=== PATIENT | male | born 2000 | race Hispanic/Latino ===

== ENCOUNTER 2022-07-18 21:50 | Inpatient (IN) | payer OTHER, SELFPAY ==
[2022-07-18 21:52] VITALS: BP 130/62; PULSE 71; RESP 18; TEMP 37.8; O2SAT 99; BMI 24.4
[2022-07-18 23:12] LABS: Adenovirus Not Detected (Not Detect); B. parapertussis Not Detected (Not Detecte); Bordetella pertussis Not Detected (Not Detecte); Chlamydophila pneumoniae Not Detected (Not Detect); Coronavirus 229E Not Detected (Not Detect); Coronavirus HKU1 Not Detected (Not Detect); Coronavirus NL 63 Not Detected (Not Detect); Coronavirus OC43 Not Detected (Not Detect); Human Metapneumovirus Not Detected (Not Detect); Human Rhinovirus/Enterovirus Not Detected (Not Detect); Influenza A Not Detected (Not Detect); Influenza B Not Detected (Not Detect); Mycoplasma pneumoniae Not Detected (Not Detect); Parainfluenza Virus 1 Not Detected (Not Detect); Parainfluenza Virus 2 Not Detected (Not Detect); Parainfluenza Virus 3 Not Detected (Not Detect); Parainfluenza Virus 4 Not Detected (Not Detect); Respiratory Syncytial Virus Not Detected (Not Detect); SARS- CoV-2 Not Detected (Not Detecte)
[2022-07-18 23:33] VITALS: BP 117/70; PULSE 64; O2SAT 100
--- NOTE | 2022-07-18 23:42 | DI.CT.S_ITS ---
PROCEDURE: CT HEAD/BRAIN WO CON INDICATIONS: Headache TECHNIQUE: Noncontrast 4.5 mm thick angled axial sections acquired from the foramen magnum to the vertex, with coronal and sagittal reformats. For radiation dose reduction, the following was used: automated exposure control, adjustment of mA and/or kV according to patient size. COMPARISON: None. FINDINGS: Image quality: Excellent. CSF spaces: Basal cisterns are patent. No extra-axial fluid collections. Ventricles are normal in size and shape. Brain: No intracranial hemorrhage, mass, or mass effect. Mendenhall-white matter interface appears preserved. Skull and face: Calvarium and visualized facial bones are intact, without suspicious lesions. Sinuses: Visualized sinuses and mastoids are clear. IMPRESSION: 1. No acute intracranial abnormality. Dictated by: Broderick Morrow M.D. on 07/19/2022 at 0:33 Approved by: Broderick Morrow M.D. on 07/19/2022 at 0:34
--- NOTE | 2022-07-18 23:49 | ED.HA ---
HPI - Headache General Chief Complaint: Headache Stated Complaint: headache Time Seen by Provider: 07/18/22 23:32 Mode of arrival: Ambulatory History of Present Illness HPI Narrative: Patient here for constant headache for the past week. Patient has seen urgent care and providers in the past week. Did go to [place] and had blood work and IV fluids and Toradol medication without relief. Patient has had a fever that seems to not improve with Tylenol and ibuprofen. No neck pain. Did have episode of vomiting. Unknown sick contacts. No cough cold or congestion. No rash. Headache is diffuse. Not unilateral. Again, no neck pain. 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 HEENT: Denies sinus pain, ear pain, sore throat RESPIRATORY: Denies dyspnea, cough CARDIOVASCULAR: Denies chest pain, palpitations GASTROINTESTINAL: Denies nausea, vomiting, abdominal pain : Denies dysuria, frequency, hematuria MUSCULOSKELETAL: denies muscle or bony pain SKIN: Denies rash, skin lesions NEUROLOGIC: Denies weakness, numbness, positive headache ROS Unobtainable: All systems reviewed & are unremarkable except as noted in HPI and below Patient History Social History household members: family Smoking Status: Never smoker alcohol intake: current Smoking Status: Never smoker Substance Use Type: does not use Exam Narrative Exam Narrative: GENERAL: in no distress, not toxic not dyspneic HEAD: Normocephalic. EYES: Pupils equal round No scleral icterus. ENT: Mucous membranes moist. NECK: Trachea midline. Actively flex extend rotate head and neck without any neck pain. Does complain of headache when he does move his neck though. CARDIOVASCULAR: Regular rate and rhythm without murmurs RESPIRATORY: Clear to auscultation. Breath sounds equal bilaterally. No wheezes, rales, or rhonchi. GASTROINTESTINAL: Abdomen soft, non-tender EXTREMITIES: No gross deformities. BACK: No flank tenderness. NEURO: AOx4. Clear speech no facial droop light touch intact bilateral face with strong equal sap bi developer SKIN: Warm and dry PSYCH: Not anxious, is cooperative Initial Vital Signs Initial Vital Signs: Vital Signs Temperature 100.0 F H 07/18/22 21:52 Pulse Rate 71 07/18/22 21:52 Respiratory Rate 18 07/18/22 21:52 Blood Pressure 130/62 07/18/22 21:52 Pulse Oximetry 99 07/18/22 21:52 Oxygen Delivery Method 07/18/22 21:52 Procedures Lumbar Puncture Time of procedure: 00:56 Time Out Performed: Yes Patient Position: left lateral decubitus Skin Prep: 0.5% Chlorhexidine/Alcohol Local Anesthetic: lidocaine 1% and with epi Amount of anesthesia used (mL): 3 Spinal Needle Gauge: 20G Interspace Used: L4-L5 Fluid Initially Obtained: clear Complications: none Additional Comments: Postprocedure. Patient flex and extending knees and ankles and hips without difficulty. Light touch intact to bilateral legs Course Course Course Narrative: Discussed with patient risks and benefits of lumbar puncture. Did speak with him concerning for meningitis. Orders Ordered: Discontinued Medications Acetaminophen (Acetaminophen 325 Mg Tablet) 650 mg PO Q6H PRN PRN Reason: Fever/Mild Pain (1-3) Diazepam (Diazepam 5 Mg Tablet) 5 mg PO Q6HR PRN PRN Reason: Anxiety Last Admin: 07/19/22 12:44 Dose: 5 mg Documented By: Enoxaparin Sodium (Enoxaparin 40 Mg/0.4 Ml Syringe) 40 mg SUBCUT DAILY [facility] Last Admin: 07/21/22 08:26 Dose: Not Given Documented By: Admin: 07/20/22 09:28 Dose: Not Given Documented By: Admin: 07/19/22 09:10 Dose: 40 mg Documented By: Sodium Chloride (Normal Saline 0.9%) 1,000 mls @ 1,000 mls/hr IV BOLUS ONE Stop: 07/19/22 00:39 Last Infusion: 07/19/22 01:52 Dose: 0 mls/hr Documented By: Admin: 07/18/22 23:58 Dose: 1,000 mls/hr Documented By: MORGAN Ceftriaxone Sodium 2,000 mg/ (Sodium Chloride) 100 mls @ 200 mls/hr IV Q24H CESILIA Last Infusion: 07/19/22 14:35 Dose: 0 mls/hr Documented By: Admin: 07/19/22 14:05 Dose: 200 mls/hr Documented By: Ibuprofen (Ibuprofen 600 Mg Tablet) 600 mg PO Q6H PRN PRN Reason: Fever/Mild Pain (1-3) Last Admin: 07/21/22 08:30 Dose: 600 mg Documented By: Admin: 07/20/22 23:01 Dose: 600 mg Documented By: Admin: 07/20/22 14:54 Dose: 600 mg Documented By: Admin: 07/20/22 07:51 Dose: 600 mg Documented By: Admin: 07/19/22 21:17 Dose: 600 mg Documented By: Admin: 07/19/22 08:05 Dose: 600 mg Documented By: BRIDGETTE Metoclopramide HCl (Metoclopramide 10 Mg/2 Ml Inj) 10 mg IV NOW ONE Stop: 07/19/22 00:56 Last Admin: 07/19/22 00:58 Dose: 10 mg Documented By: MORGAN Morphine Sulfate (Morphine 4 Mg/Ml Inj) 4 mg IV NOW ONE Stop: 07/18/22 23:41 Last Admin: 07/18/22 23:58 Dose: 4 mg Documented By: MORGAN Morphine Sulfate (Morphine 4 Mg/Ml Inj) 4 mg IV Q6HR PRN PRN Reason: Pain, Severe (7-10) Last Admin: 07/19/22 18:19 Dose: 4 mg Documented By: Admin: 07/19/22 09:10 Dose: 4 mg Documented By: Ondansetron HCl (Ondansetron 4 Mg/2 Ml Inj) 4 mg IV NOW ONE Stop: 07/18/22 23:41 Last Admin: 07/18/22 23:58 Dose: 4 mg Documented By: MORGAN Ondansetron HCl (Ondansetron 4 Mg/2 Ml Inj) 4 mg IV Q8HR PRN PRN Reason: Nausea And Vomiting Last Admin: 07/19/22 09:20 Dose: 4 mg Documented By: Oxycodone HCl (Oxycodone Ir 5 Mg Tablet) 5 mg PO Q3H PRN PRN Reason: Pain, Moderate (4-6) Last Admin: 07/20/22 23:01 Dose: 5 mg Documented By: Admin: 07/20/22 14:54 Dose: 5 mg Documented By: Admin: 07/20/22 07:50 Dose: 5 mg Documented By: Admin: 07/19/22 21:18 Dose: 5 mg Documented By: Reevaluation(s) Reevaluation #1: Reviewed results with patient and agrees and understands need for admission. Consultations Consultation #1: Spoke with hospitalist, agrees for admission. Vital Signs Vital signs: Vital Signs - 8 hr 07/18/22 21:52 07/18/22 23:33 07/18/22 23:33 Temperature 100.0 F H Pulse Rate 71 64 Respiratory Rate 18 Blood Pressure 130/62 117/70 Pulse Oximetry 99 100 Oxygen Delivery Method Room Air MDM - Headache Differential Diagnosis Differential diagnosis: Likely migraine, tension headache, subarachnoid hemorrhage, headache and meningitis Lab Data Result diagrams: 07/21/22 05:40 07/21/22 05:40 Labs: Lab Results 07/18/22 07/18/22 07/18/22 Range/Units 22:00 23:30 23:54 WBC 3.9 L (4.5-11.0) X10^3/uL RBC 4.69 (4.5-5.9) X10^6/uL Hgb 14.0 (13.5-17.5) g/dL Hct 40.7 L (41-53) % MCV 86.9 (80-100) fL MCH 29.9 (26-34) PG MCHC 34.4 (30-36) % RDW 12.8 (11.6-14.8) % Plt Count 131 L (150-400) X10^3/uL Neut % (Auto) 53.7 (50-75) % Lymph % (Auto) 31.0 (25-40) % [place] % (Auto) 13.5 (3-14) % Eos % (Auto) 1.3 L (2-4) % Baso % (Auto) 0.5 (0-2) % Neut # (Auto) 2100 (0289-6478) /uL Lymph # (Auto) 1200 (9273-3165) /uL [place] # (Auto) 500 (0-900) /uL Eos # (Auto) 100 (0-450) /uL Baso # (Auto) 0 (0-100) /uL Sodium (137-145) mmol/L Potassium (3.4-5.1) mmol/L Chloride (98-107) mmol/L Carbon Dioxide (22-32) mmol/L BUN (9-20) mg/dL Creatinine (0.66-1.25) mg/dL Estimated GFR (>60) mL/min BUN/Creatinine Ratio (6-22) Glucose (70-100) mg/dL Lactate (0.7-2.1) mmol/L Calcium (8.4-10.2) mg/dL Total Bilirubin (0.2-1.3) mg/dL AST (17-59) IU/L ALT (<50) IU/L Alkaline Phosphatase (38-126) U/L Total Protein (6.3-8.2) g/dL Albumin (3.5-5.0) g/dL Globulin (1.7-4.1) g/dL Albumin/Globulin Ratio (1.0-2.8) Procalcitonin (<0.5) ng/mL Urine RBC 1-5/hpf (0-5/HPF) Urine WBC None seen (0-5/HPF) Urine Bacteria None seen (None) Ur Culture Indicated? Cult not indicated CSF Tube Number CSF Volume CSF Appearance (Clear) CSF Color (Colorless) CSF WBC (0-5) MONO/uL CSF RBC RBC /uL CSF Mononuclear WBCs % CSF Polynuclear WBCs % CSF Glucose (40-70) mg/dL CSF Total Protein (12-60) mg/dL CSF C.neoform/gat PCR (Not Detect) CSF CMV DNA (PCR) (Not Detect) CSF Enterovirus (PCR) (Not Detect) CSF E. coli (PCR) (Not Detect) CSF H. influenzae (PCR) (Not Detect) CSF HSV I (PCR) (Not Detect) CSF HSV II (PCR) (Not Detect) CSF HHV 6 (PCR) (Not Detect) CSF L.monocytogenes PCR (Not Detect) CSF N. meningitidis PCR (Not Detect) CSF Parechovirus (PCR) (Not Detect) CSF S. agalactiae (PCR) (Not Detect) CSF S. pneumoniae (PCR) (Not Detect) CSF VZV (PCR) (Not Detecte) Acetaminophen (10-30) ug/mL Chlamy pneumoniae PCR Not detected (Not Detect) Adenovirus (PCR) Not detected (Not Detect) B. pertussis DNA (PCR) Not detected (Not Detecte) B.parapertussis DNA PCR Not detected (Not Detecte) Coronavirus OC43 (PCR) Not detected (Not Detect) Coronavirus HKU1 (PCR) Not detected (Not Detect) Coronavirus 229E (PCR) Not detected (Not Detect) SARS-CoV-2 (PCR) Not detected (Not Detecte) Coronavirus NL63 (PCR) Not detected (Not Detect) Human Metapneumovir PCR Not detected (Not Detect) Influenza Type A (PCR) Not detected (Not Detect) Influenza Type B (PCR) Not detected (Not Detect) M. pneumoniae (PCR) Not detected (Not Detect) Parainfluenza 1 (PCR) Not detected (Not Detect) Parainfluenza 2 (PCR) Not detected (Not Detect) Parainfluenza 3 (PCR) Not detected (Not Detect) Parainfluenza 4 (PCR) Not detected (Not Detect) RSV (PCR) Not detected (Not Detect) Entero/Rhino (PCR) Not detected (Not Detect) 07/18/22 07/18/22 07/18/22 Range/Units 23:54 23:54 23:54 WBC (4.5-11.0) X10^3/uL RBC (4.5-5.9) X10^6/uL Hgb (13.5-17.5) g/dL Hct (41-53) % MCV (80-100) fL MCH (26-34) PG MCHC (30-36) % RDW (11.6-14.8) % Plt Count (150-400) X10^3/uL Neut % (Auto) (50-75) % Lymph % (Auto) (25-40) % [place] % (Auto) (3-14) % Eos % (Auto) (2-4) % Baso % (Auto) (0-2) % Neut # (Auto) (0111-0497) /uL Lymph # (Auto) (7434-6424) /uL [place] # (Auto) (0-900) /uL Eos # (Auto) (0-450) /uL Baso # (Auto) (0-100) /uL Sodium 136 L (137-145) mmol/L Potassium 3.7 (3.4-5.1) mmol/L Chloride 102 (98-107) mmol/L Carbon Dioxide 30 (22-32) mmol/L BUN 12 (9-20) mg/dL Creatinine 1.02 (0.66-1.25) mg/dL Estimated GFR > 60 (>60) mL/min BUN/Creatinine Ratio 11.8 (6-22) Glucose 91 (70-100) mg/dL Lactate 0.5 L (0.7-2.1) mmol/L Calcium 8.5 (8.4-10.2) mg/dL Total Bilirubin 0.5 (0.2-1.3) mg/dL AST 655 H (17-59) IU/L ALT 737 H (<50) IU/L Alkaline Phosphatase 136 H (38-126) U/L Total Protein 7.0 (6.3-8.2) g/dL Albumin 4.0 (3.5-5.0) g/dL Globulin 3.0 (1.7-4.1) g/dL Albumin/Globulin Ratio 1.3 (1.0-2.8) Procalcitonin 0.20 (<0.5) ng/mL Urine RBC (0-5/HPF) Urine WBC (0-5/HPF) Urine Bacteria (None) Ur Culture Indicated? CSF Tube Number CSF Volume CSF Appearance (Clear) CSF Color (Colorless) CSF WBC (0-5) MONO/uL CSF RBC RBC /uL CSF Mononuclear WBCs % CSF Polynuclear WBCs % CSF Glucose (40-70) mg/dL CSF Total Protein (12-60) mg/dL CSF C.neoform/gat PCR (Not Detect) CSF CMV DNA (PCR) (Not Detect) CSF Enterovirus (PCR) (Not Detect) CSF E. coli (PCR) (Not Detect) CSF H. influenzae (PCR) (Not Detect) CSF HSV I (PCR) (Not Detect) CSF HSV II (PCR) (Not Detect) CSF HHV 6 (PCR) (Not Detect) CSF L.monocytogenes PCR (Not Detect) CSF N. meningitidis PCR (Not Detect) CSF Parechovirus (PCR) (Not Detect) CSF S. agalactiae (PCR) (Not Detect) CSF S. pneumoniae (PCR) (Not Detect) CSF VZV (PCR) (Not Detecte) Acetaminophen < 10 (10-30) ug/mL Chlamy pneumoniae PCR (Not Detect) Adenovirus (PCR) (Not Detect) B. pertussis DNA (PCR) (Not Detecte) B.parapertussis DNA PCR (Not Detecte) Coronavirus OC43 (PCR) (Not Detect) Coronavirus HKU1 (PCR) (Not Detect) Coronavirus 229E (PCR) (Not Detect) SARS-CoV-2 (PCR) (Not Detecte) Coronavirus NL63 (PCR) (Not Detect) Human Metapneumovir PCR (Not Detect) Influenza Type A (PCR) (Not Detect) Influenza Type B (PCR) (Not Detect) M. pneumoniae (PCR) (Not Detect) Parainfluenza 1 (PCR) (Not Detect) Parainfluenza 2 (PCR) (Not Detect) Parainfluenza 3 (PCR) (Not Detect) Parainfluenza 4 (PCR) (Not Detect) RSV (PCR) (Not Detect) Entero/Rhino (PCR) (Not Detect) 07/19/22 07/19/22 07/19/22 Range/Units 00:05 00:05 00:05 WBC (4.5-11.0) X10^3/uL RBC (4.5-5.9) X10^6/uL Hgb (13.5-17.5) g/dL Hct (41-53) % MCV (80-100) fL MCH (26-34) PG MCHC (30-36) % RDW (11.6-14.8) % Plt Count (150-400) X10^3/uL Neut % (Auto) (50-75) % Lymph % (Auto) (25-40) % [place] % (Auto) (3-14) % Eos % (Auto) (2-4) % Baso % (Auto) (0-2) % Neut # (Auto) (2816-4635) /uL Lymph # (Auto) (5510-9763) /uL [place] # (Auto) (0-900) /uL Eos # (Auto) (0-450) /uL Baso # (Auto) (0-100) /uL Sodium (137-145) mmol/L Potassium (3.4-5.1) mmol/L Chloride (98-107) mmol/L Carbon Dioxide (22-32) mmol/L BUN (9-20) mg/dL Creatinine (0.66-1.25) mg/dL Estimated GFR (>60) mL/min BUN/Creatinine Ratio (6-22) Glucose (70-100) mg/dL Lactate (0.7-2.1) mmol/L Calcium (8.4-10.2) mg/dL Total Bilirubin (0.2-1.3) mg/dL AST (17-59) IU/L ALT (<50) IU/L Alkaline Phosphatase (38-126) U/L Total Protein (6.3-8.2) g/dL Albumin (3.5-5.0) g/dL Globulin (1.7-4.1) g/dL Albumin/Globulin Ratio (1.0-2.8) Procalcitonin (<0.5) ng/mL Urine RBC (0-5/HPF) Urine WBC (0-5/HPF) Urine Bacteria (None) Ur Culture Indicated? CSF Tube Number 1 CSF Volume 2.0 ml CSF Appearance Clear (Clear) CSF Color Colorless (Colorless) CSF WBC 10 H (0-5) MONO/uL CSF RBC 22 RBC /uL CSF Mononuclear WBCs 67 % CSF Polynuclear WBCs 33 % CSF Glucose 53 (40-70) mg/dL CSF Total Protein 54 (12-60) mg/dL CSF C.neoform/gat PCR Not detected (Not Detect) CSF CMV DNA (PCR) Not detected (Not Detect) CSF Enterovirus (PCR) Detected H (Not Detect) CSF E. coli (PCR) Not detected (Not Detect) CSF H. influenzae (PCR) Not detected (Not Detect) CSF HSV I (PCR) Not detected (Not Detect) CSF HSV II (PCR) Not detected (Not Detect) CSF HHV 6 (PCR) Not detected (Not Detect) CSF L.monocytogenes PCR Not detected (Not Detect) CSF N. meningitidis PCR Not detected (Not Detect) CSF Parechovirus (PCR) Not detected (Not Detect) CSF S. agalactiae (PCR) Not detected (Not Detect) CSF S. pneumoniae (PCR) Not detected (Not Detect) CSF VZV (PCR) Not detected (Not Detecte) Acetaminophen (10-30) ug/mL Chlamy pneumoniae PCR (Not Detect) Adenovirus (PCR) (Not Detect) B. pertussis DNA (PCR) (Not Detecte) B.parapertussis DNA PCR (Not Detecte) Coronavirus OC43 (PCR) (Not Detect) Coronavirus HKU1 (PCR) (Not Detect) Coronavirus 229E (PCR) (Not Detect) SARS-CoV-2 (PCR) (Not Detecte) Coronavirus NL63 (PCR) (Not Detect) Human Metapneumovir PCR (Not Detect) Influenza Type A (PCR) (Not Detect) Influenza Type B (PCR) (Not Detect) M. pneumoniae (PCR) (Not Detect) Parainfluenza 1 (PCR) (Not Detect) Parainfluenza 2 (PCR) (Not Detect) Parainfluenza 3 (PCR) (Not Detect) Parainfluenza 4 (PCR) (Not Detect) RSV (PCR) (Not Detect) Entero/Rhino (PCR) (Not Detect) Urine Dip Bedside Urine Glucose Negative Bedside Urine Bilirubin - Negative Bedside Urine Ketone - Negative Urine Specific [place] 1.025 Bedside Urine Occult Blood +/- Bedside Urine pH 6.0 Bedside Urine Protein - Negative Bedside Urine Urobilinogen - Negative Bedside Urine Nitrite - Negative Bedside Urine Leukocytes - Negative Esterase Imaging Data CT scan - head: Radiologist's Impression: [place] [address] CT Scan Report Signed Patient: Anthony White MR#: [id number] : 2000 Acct:[id number] Age/Sex: 22 / M Date of Service: 07/18/22 Loc: ED Accession Number: [id number] ?? Procedure: CT head/brain wo con Ordering Provider: Bobby Mena MD PROCEDURE:? CT HEAD/BRAIN WO CON ? INDICATIONS:? Headache ? TECHNIQUE:? Noncontrast 4.5 mm thick angled axial sections acquired from the foramen magnum to the vertex, with coronal and sagittal reformats.? For radiation dose reduction, the following was used:? automated exposure control, adjustment of mA and/or kV according to patient size.? ? COMPARISON:? None. ? FINDINGS:? Image quality:? Excellent.? ? CSF spaces:? Basal cisterns are patent.? No extra-axial fluid collections.? Ventricles are normal in size and shape.? ? Brain:? No intracranial hemorrhage, mass, or mass effect.? Mendenhall-white matter interface appears preserved.? ? Skull and face:? Calvarium and visualized facial bones are intact, without suspicious lesions.? ? Sinuses:? Visualized sinuses and mastoids are clear.? ? IMPRESSION:? ? 1. No acute intracranial abnormality. ? ? Dictated by: Broderick Morrow M.D. on 07/19/2022 at 0:33 ? ? Approved by: Broderick Morrow M.D. on 07/19/2022 at 0:34 ? CT scan - abdomen/pelvis: Radiologist's Impression: No acute process in the abdomen or pelvis MDM Narrative Medical decision making narrative: Upper for admission. Patient will need to be admitted for meningitis and treatment. I did review with patient and he does understand. Not altered mental status. Reviewed with hospitalist agrees for admit. Discharge Plan Departure Patient Disposition: Admitted As Inpatient Clinical Impression: Enterovirus meningitis Admit Date/Time: 07/19/22 03:54 Admit Provider: Hussein Banks
[2022-07-18] MEDS: MORPHINE 4 MG/ML INJ IV (23:58)
[2022-07-18] MEDS: ONDANSETRON 4 MG/2 ML INJ IV (23:58)
[2022-07-18] MEDS: SODIUM CHLORIDE 0.9% 1,000 ML 1000 ML IV (23:58)
[2022-07-19] VITALS (26 sets, daily range): BP systolic 96–139; BP diastolic 46–75; PULSE 59–77; RESP 11–21; TEMP 37.2–38.6; O2SAT 97–100; BMI 23.5
[2022-07-19 00:02] LABS: Add Manual Diff / Slide Review NO; Basophils Absolute Auto 0 /uL (0-100); Basophils Percent Auto 0.5 % (0-2); Eosinophils Absolute Auto 100 /uL (0-450); Eosinophils Percent Auto 1.3 % (2-4); Hematocrit 40.7 % (41-53); Lymphocytes Absolute Auto 1200 /uL (1100-4500); Mean Corpuscular HGB Conc 34.4 % (30-36); Mean Corpuscular Hemoglobin 29.9 PG (26-34); Mean Corpuscular Volume 86.9 fL (80-100); Monocytes Absolute Auto 500 /uL (0-900); Monocytes Percent Auto 13.5 % (3-14); Neutrophils Absolute Auto 2100 /uL (1500-7000); Neutrophils Percent Auto 53.7 % (50-75); Platelet Count 131 X10^3/uL (150-400); Red Blood Cell Count 4.69 X10^6/uL (4.5-5.9); Red Cell Distribution Width 12.8 % (11.6-14.8); White Blood Cell Count 3.9 X10^3/uL (4.5-11.0)
[2022-07-19 00:11] LABS: Bacteria Urine None Seen; Culture Indicated Urine Cult Not Indicated; RBC Urine 1-5/HPF (0-5/HPF); WBC Urine None Seen (0-5/HPF)
[2022-07-19 00:16] LABS: Alanine Aminotransferase 737 IU/L (<50); Albumin Globulin Ratio 1.3 (1.0-2.8); Alkaline Phosphatase 136 U/L (38-126); Aspartate Aminotransferase 655 IU/L (17-59); BUN Creatinine Ratio 11.8 (6-22); Bilirubin Total 0.5 mg/dL (0.2-1.3); Blood Urea Nitrogen 12 mg/dL (9-20); Calcium 8.5 mg/dL (8.4-10.2); Carbon Dioxide 30 mmol/L (22-32); Chloride 102 mmol/L (98-107); Estimated Glomerular Filt Rate > 60 mL/min (>60); Glucose 91 mg/dL (70-100); HEMOLYSIS 16 (0-50); Potassium 3.7 mmol/L (3.4-5.1); Sodium 136 mmol/L (137-145)
[2022-07-19 00:17] LABS: Lactate (Lactic Acid) 0.5 mmol/L (0.7-2.1)
[2022-07-19 00:51] LABS: Acetaminophen < 10 ug/mL (10-30)
[2022-07-19] MEDS: METOCLOPRAMIDE 10 MG/2 ML INJ IV (00:58)
[2022-07-19 01:21] LABS: Glucose CSF 53 mg/dL (40-70); Total Protein CSF 54 mg/dL (12-60)
[2022-07-19 01:25] LABS: Appearance CSF Clear (Clear); CSF Tube Number 1; CSF Tube Volume 2.0 mL; Color CSF Colorless (Colorless)
[2022-07-19 01:34] LABS: Mononuclear WBC CSF 67 %; Red Blood Cell CSF 22 RBC /uL; White Blood Cell CSF 10 MONO/uL (0-5)
[2022-07-19 01:35] LABS: Polynuclear WBC CSF 33 %
--- NOTE | 2022-07-19 02:00 | DI.CT.S_ITS ---
PROCEDURE: CT ABDOMEN PELVIS W CON INDICATIONS: iv contrast only, abd pain TECHNIQUE: After the administration of IV contrast, axial sections were acquired from the lung bases to the pubic symphysis. Coronal and sagittal reformats were performed. For radiation dose reduction, the following was used: automated exposure control, adjustment of mA and/or kV according to patient size. COMPARISON: None. FINDINGS: Image quality: Excellent. Lung bases: Unremarkable. Heart: No significant findings. ABDOMEN: Liver: Unremarkable. Gallbladder: Unremarkable. Biliary ducts: Unremarkable. Pancreas: Unremarkable. Spleen: Unremarkable. Adrenal Glands: Unremarkable. Kidneys and Ureters: Unremarkable. Stomach and Bowel: Stomach, small bowel loops, and colon are normal in caliber. Appendix is not well seen. No secondary signs for acute appendicitis. Peritoneum: No abnormal intraperitoneal fluid. No free air. Ventral Wall: No hernia. Abdominal Nodes: No retroperitoneal or mesenteric adenopathy by size criteria. Vessels: Aorta and inferior vena cava are normal in size. PELVIS: Pelvic Organs: Unremarkable. Bladder: Bladder wall is thickened. Pelvic Nodes: No enlarged lymph nodes. Miscellaneous: No inguinal hernias are seen. Bones: Unremarkable. IMPRESSION: 1. Bladder wall thickening suggesting cystitis. A differential diagnosis is artifact. Recommend clinical correlation. No significant discrepancy with the security shift supervisor radiology preliminary report. The above finding was not mentioned in the preliminary result. The result was discussed with Dr. Wayne. Dictated by: Heladio Hinds M.D. on 07/19/2022 at 8:43 Approved by: Heladio Hinds M.D. on 07/19/2022 at 9:14
[2022-07-19 02:27] LABS: Cryptococcus neoformans/gattii Not Detected (Not Detect); Escherichia coli K1 Not Detected (Not Detect); Haemophilus influenzae Not Detected (Not Detect); Herpes simplex virus 1 Not Detected (Not Detect); Herpes simplex virus 2 Not Detected (Not Detect); Human herpesvirus 6 Not Detected (Not Detect); Human parechovirus Not Detected (Not Detect); Listeria monocytogenes Not Detected (Not Detect); Neisseria meningitidis Not Detected (Not Detect); Streptococcus agalactiae Not Detected (Not Detect); Streptococcus pneumoniae Not Detected (Not Detect); Varicella Zoster Virus Not Detected (Not Detecte)
[2022-07-19 02:28] LABS: Enterovirus Detected (Not Detect)
--- NOTE | 2022-07-19 04:19 | P.HP_ITS ---
History of Present Illness History of Present Illness Date Patient Seen: 07/19/22 Time Patient Seen: 04:00 Chief complaint: headache Narrative: Mr. White is a 22M with no significant PMH who presents to the hospital with headache. He states he has had a headache since last Saturday. He has had some nausea. He has no neck stiffness. Headaches is throughout his head. He has no vision changes. His two daughters have been sick with sinus symptoms. Two days ago he had a fine faint rash on his whole body that is now gone. He has no genital lesions. In the ED workup was done, vitals notable for T-100, other vitals normal. Labs notable for WBC 3.9, hgb 14, plts 131. Creatinine 1.02. AST 655/ALT 733, alk phos 136, bili 0.5. Procal 0.20. UA negative. Respiratory panel negative. LP done showing 10 WBCs, glucose 53, total protein 54. PCR showed positive ente rovirus in CSF. CT head negative for an acute process. CT abdomen/pelvis preliminarily with no acute process. He was given pain medications and admitted for further treatment. Family history: asked and patient stated no significant family history of medical disease Social history: social EtOH, no tobacco, no other substance abuse Patient History Family & Social History Safety & Behavioral: Feels Safe in Current Yes Environment Been Physically Hurt or No Threatened By a Person Tobacco & Substance use: Smoking Status Never smoker Substance Use Type does not use Meds Home Medications and Allergies Allergies Allergy/AdvReac Type Severity Reaction Status Date / Time No Known Drug Allergies Allergy Verified 07/19/22 00:56 Review of Systems Review of Systems Narrative: 14 systems reviewed and negative aside from what is noted in HPI Exam Vital Signs (past 8 hours): - 07/18/22 21:52 07/18/22 23:33 07/18/22 23:33 Temperature 100.0 F H Pulse Rate 71 64 Respiratory Rate 18 Blood Pressure 130/62 117/70 Pulse Oximetry 99 100 Oxygen Delivery Method Room Air 07/19/22 00:00 07/19/22 00:00 07/19/22 00:54 Temperature Pulse Rate 66 Respiratory Rate Blood Pressure 124/75 123/64 Pulse Oximetry 100 Oxygen Delivery Method 07/19/22 00:54 07/19/22 01:00 07/19/22 01:00 Temperature Pulse Rate 70 72 Respiratory Rate 21 21 Blood Pressure 120/57 L Pulse Oximetry 99 100 Oxygen Delivery Method 07/19/22 01:30 07/19/22 01:30 07/19/22 02:00 Temperature Pulse Rate 66 Respiratory Rate 15 Blood Pressure 105/57 L 96/53 L Pulse Oximetry 97 Oxygen Delivery Method 07/19/22 02:00 07/19/22 02:30 07/19/22 02:30 Temperature Pulse Rate 64 61 Respiratory Rate 15 16 Blood Pressure 113/61 Pulse Oximetry 97 Oxygen Delivery Method 07/19/22 03:00 07/19/22 03:00 07/19/22 03:30 Temperature Pulse Rate 64 Respiratory Rate 15 Blood Pressure 118/65 104/55 L Pulse Oximetry Oxygen Delivery Method 07/19/22 03:30 07/19/22 04:00 07/19/22 04:01 Temperature Pulse Rate 62 68 Respiratory Rate 16 11 L Blood Pressure 126/59 L Pulse Oximetry Oxygen Delivery Method 07/19/22 04:01 Temperature Pulse Rate 68 Respiratory Rate 15 Blood Pressure Pulse Oximetry Oxygen Delivery Method Oxygen Delivery Method Room Air Narrative Exam Narrative: GEN: appears in pain, uncomfortable HEENT: moist mucous membranes, PERRL NECK: trachea midline, no JVD PULM: clear bilaterally CV: regular rate and rhyhtm, no murmurs ABD: soft, nontender, nondistended, no organomegaly EXT: warm and well perfused with no edema NEURO: awake, alert, oriented, normal range of motion of neck Objective Labs Result Diagrams: 07/18/22 23:54 07/18/22 23:54 Labs: Laboratory Results - last 24 hr 07/18/22 07/18/22 07/18/22 22:00 23:30 23:54 WBC 3.9 L RBC 4.69 Hgb 14.0 Hct 40.7 L MCV 86.9 MCH 29.9 MCHC 34.4 RDW 12.8 Plt Count 131 L Neut % (Auto) 53.7 Lymph % (Auto) 31.0 [place] % (Auto) 13.5 Eos % (Auto) 1.3 L Baso % (Auto) 0.5 Neut # (Auto) 2100 Lymph # (Auto) 1200 [place] # (Auto) 500 Eos # (Auto) 100 Baso # (Auto) 0 Sodium Potassium Chloride Carbon Dioxide BUN Creatinine Estimated GFR BUN/Creatinine Ratio Glucose Lactate Calcium Total Bilirubin AST ALT Alkaline Phosphatase Total Protein Albumin Globulin Albumin/Globulin Ratio Procalcitonin Urine RBC 1-5/hpf Urine WBC None seen Urine Bacteria None seen Ur Culture Indicated? Cult not indicated CSF Tube Number CSF Volume CSF Appearance CSF Color CSF WBC CSF RBC CSF Mononuclear WBCs CSF Polynuclear WBCs CSF Glucose CSF Total Protein CSF C.neoform/gat PCR CSF CMV DNA (PCR) CSF Enterovirus (PCR) CSF E. coli (PCR) CSF H. influenzae (PCR) CSF HSV I (PCR) CSF HSV II (PCR) CSF HHV 6 (PCR) CSF L.monocytogenes PCR CSF N. meningitidis PCR CSF Parechovirus (PCR) CSF S. agalactiae (PCR) CSF S. pneumoniae (PCR) CSF VZV (PCR) Acetaminophen Chlamy pneumoniae PCR Not detected Adenovirus (PCR) Not detected B. pertussis DNA (PCR) Not detected B.parapertussis DNA PCR Not detected Coronavirus OC43 (PCR) Not detected Coronavirus HKU1 (PCR) Not detected Coronavirus 229E (PCR) Not detected SARS-CoV-2 (PCR) Not detected Coronavirus NL63 (PCR) Not detected Human Metapneumovir PCR Not detected Influenza Type A (PCR) Not detected Influenza Type B (PCR) Not detected M. pneumoniae (PCR) Not detected Parainfluenza 1 (PCR) Not detected Parainfluenza 2 (PCR) Not detected Parainfluenza 3 (PCR) Not detected Parainfluenza 4 (PCR) Not detected RSV (PCR) Not detected Entero/Rhino (PCR) Not detected 07/18/22 07/18/22 07/18/22 23:54 23:54 23:54 WBC RBC Hgb Hct MCV MCH MCHC RDW Plt Count Neut % (Auto) Lymph % (Auto) [place] % (Auto) Eos % (Auto) Baso % (Auto) Neut # (Auto) Lymph # (Auto) [place] # (Auto) Eos # (Auto) Baso # (Auto) Sodium 136 L Potassium 3.7 Chloride 102 Carbon Dioxide 30 BUN 12 Creatinine 1.02 Estimated GFR > 60 BUN/Creatinine Ratio 11.8 Glucose 91 Lactate 0.5 L Calcium 8.5 Total Bilirubin 0.5 AST 655 H ALT 737 H Alkaline Phosphatase 136 H Total Protein 7.0 Albumin 4.0 Globulin 3.0 Albumin/Globulin Ratio 1.3 Procalcitonin 0.20 Urine RBC Urine WBC Urine Bacteria Ur Culture Indicated? CSF Tube Number CSF Volume CSF Appearance CSF Color CSF WBC CSF RBC CSF Mononuclear WBCs CSF Polynuclear WBCs CSF Glucose CSF Total Protein CSF C.neoform/gat PCR CSF CMV DNA (PCR) CSF Enterovirus (PCR) CSF E. coli (PCR) CSF H. influenzae (PCR) CSF HSV I (PCR) CSF HSV II (PCR) CSF HHV 6 (PCR) CSF L.monocytogenes PCR CSF N. meningitidis PCR CSF Parechovirus (PCR) CSF S. agalactiae (PCR) CSF S. pneumoniae (PCR) CSF VZV (PCR) Acetaminophen < 10 Chlamy pneumoniae PCR Adenovirus (PCR) B. pertussis DNA (PCR) B.parapertussis DNA PCR Coronavirus OC43 (PCR) Coronavirus HKU1 (PCR) Coronavirus 229E (PCR) SARS-CoV-2 (PCR) Coronavirus NL63 (PCR) Human Metapneumovir PCR Influenza Type A (PCR) Influenza Type B (PCR) M. pneumoniae (PCR) Parainfluenza 1 (PCR) Parainfluenza 2 (PCR) Parainfluenza 3 (PCR) Parainfluenza 4 (PCR) RSV (PCR) Entero/Rhino (PCR) 07/19/22 07/19/22 07/19/22 00:05 00:05 00:05 WBC RBC Hgb Hct MCV MCH MCHC RDW Plt Count Neut % (Auto) Lymph % (Auto) [place] % (Auto) Eos % (Auto) Baso % (Auto) Neut # (Auto) Lymph # (Auto) [place] # (Auto) Eos # (Auto) Baso # (Auto) Sodium Potassium Chloride Carbon Dioxide BUN Creatinine Estimated GFR BUN/Creatinine Ratio Glucose Lactate Calcium Total Bilirubin AST ALT Alkaline Phosphatase Total Protein Albumin Globulin Albumin/Globulin Ratio Procalcitonin Urine RBC Urine WBC Urine Bacteria Ur Culture Indicated? CSF Tube Number 1 CSF Volume 2.0 ml CSF Appearance Clear CSF Color Colorless CSF WBC 10 H CSF RBC 22 CSF Mononuclear WBCs 67 CSF Polynuclear WBCs 33 CSF Glucose 53 CSF Total Protein 54 CSF C.neoform/gat PCR Not detected CSF CMV DNA (PCR) Not detected CSF Enterovirus (PCR) Detected H CSF E. coli (PCR) Not detected CSF H. influenzae (PCR) Not detected CSF HSV I (PCR) Not detected CSF HSV II (PCR) Not detected CSF HHV 6 (PCR) Not detected CSF L.monocytogenes PCR Not detected CSF N. meningitidis PCR Not detected CSF Parechovirus (PCR) Not detected CSF S. agalactiae (PCR) Not detected CSF S. pneumoniae (PCR) Not detected CSF VZV (PCR) Not detected Acetaminophen Chlamy pneumoniae PCR Adenovirus (PCR) B. pertussis DNA (PCR) B.parapertussis DNA PCR Coronavirus OC43 (PCR) Coronavirus HKU1 (PCR) Coronavirus 229E (PCR) SARS-CoV-2 (PCR) Coronavirus NL63 (PCR) Human Metapneumovir PCR Influenza Type A (PCR) Influenza Type B (PCR) M. pneumoniae (PCR) Parainfluenza 1 (PCR) Parainfluenza 2 (PCR) Parainfluenza 3 (PCR) Parainfluenza 4 (PCR) RSV (PCR) Entero/Rhino (PCR) Assessment & Plan Assessment & Plan narrative: 1. Aseptic meninigitis -patient noted to have pleiocytosis, with PCR positive enterovirus in CSF -for this will currently treat with supportive measures -procal negative, gram stain negative, very low suspicion for bacterial meningitis and antibiotics now currently indicated -if worsens consider repeat LP, or empirically starting antibiotics -denies any ulcers, genital lesions, so very unlikely HSV, no indication for treatment currently 2. Transaminitis -suspect etiology is secondary to viral infection -denies significant tylenol, alcohol use, and has no history of liver disease -CT showed no acute process prelim, follow up final read -ordered hepatitis serologies -trend LFTs Patient has severe headache and will need to be watched closely to ensure does not develop signs of bacterial meningitis. In addition will need to watch liver function tests closely. CODE: Full Proxy: Lynn White, spouse I have utilized all available resources to reconcile the patient's home medications Time Spent With Patient Critical Care time: I spent a total of [] minutes of critical care time on this patient's care today; this time is exclusive of procedural time.
[2022-07-19 06:12] LABS: Add Manual Diff / Slide Review NO; Basophils Absolute Auto 0 /uL (0-100); Basophils Percent Auto 0.7 % (0-2); Eosinophils Absolute Auto 100 /uL (0-450); Eosinophils Percent Auto 1.6 % (2-4); Hematocrit 42.1 % (41-53); Hemoglobin 14.3 g/dL (13.5-17.5); Lymphocytes Absolute Auto 1100 /uL (1100-4500); Lymphocytes Percent Auto 29.4 % (25-40); Mean Corpuscular Hemoglobin 29.6 PG (26-34); Mean Corpuscular Volume 87.1 fL (80-100); Monocytes Absolute Auto 500 /uL (0-900); Monocytes Percent Auto 14.5 % (3-14); Neutrophils Absolute Auto 2000 /uL (1500-7000); Neutrophils Percent Auto 53.8 % (50-75); Platelet Count 128 X10^3/uL (150-400); Red Blood Cell Count 4.83 X10^6/uL (4.5-5.9); Red Cell Distribution Width 12.6 % (11.6-14.8); White Blood Cell Count 3.7 X10^3/uL (4.5-11.0)
[2022-07-19 06:21] LABS: Alanine Aminotransferase 730 IU/L (<50); Albumin Globulin Ratio 1.3 (1.0-2.8); Alkaline Phosphatase 135 U/L (38-126); Aspartate Aminotransferase 560 IU/L (17-59); BUN Creatinine Ratio 9.7 (6-22); Bilirubin Total 0.5 mg/dL (0.2-1.3); Blood Urea Nitrogen 9 mg/dL (9-20); Calcium 8.8 mg/dL (8.4-10.2); Carbon Dioxide 28 mmol/L (22-32); Chloride 102 mmol/L (98-107); Estimated Glomerular Filt Rate > 60 mL/min (>60); Globulin 3.1 g/dL (1.7-4.1); Glucose 115 mg/dL (70-100); HEMOLYSIS < 15 (0-50); Potassium 4.1 mmol/L (3.4-5.1); Sodium 138 mmol/L (137-145); Total Protein 7.1 g/dL (6.3-8.2)
[2022-07-19] MEDS: IBUPROFEN 600 MG TABLET PO ×2 (08:05→21:17)
[2022-07-19] MEDS: ENOXAPARIN 40 MG/0.4 ML SYRINGE SUBCUT (09:10)
[2022-07-19] MEDS: MORPHINE 4 MG/ML INJ IV ×2 (09:10→18:19)
[2022-07-19] MEDS: ONDANSETRON 4 MG/2 ML INJ IV (09:20)
[2022-07-19 10:04] LABS: Hepatitis B Surface Antigen NEGATIVE s/c (NEGATIVE)
[2022-07-19 10:16] LABS: HIV 1 & 2 Ab/Ag 4th Gen Combo NEGATIVE (NEGATIVE)
[2022-07-19] MEDS: diazePAM 5 MG TABLET PO (12:44)
[2022-07-19] MEDS: cefTRIAXone 2,000 MG in SODIUM CHLORIDE 0.9% 100 ML 200 MG IV (14:05)
[2022-07-19] MEDS: OXYCODONE IR 5 MG TABLET PO (21:18)
[2022-07-20] VITALS (7 sets, daily range): BP systolic 92–116; BP diastolic 53–66; PULSE 58–77; RESP 16–18; TEMP 36.4–37.1; O2SAT 94–100
[2022-07-20 03:53] LABS: Hepatitis B Core Antibody Negative (Negative)
[2022-07-20] MEDS: OXYCODONE IR 5 MG TABLET PO ×3 (07:50→23:01)
[2022-07-20] MEDS: IBUPROFEN 600 MG TABLET PO ×3 (07:51→23:01)
[2022-07-20 09:50] LABS: Hepatitis A Ab IgM Negative (Negative); Hepatitis A Ab Total Positive (Negative)
--- NOTE | 2022-07-20 18:45 | PM.PN.1 ---
Subjective Subjective Date Patient Seen: 07/20/22 Interval history: 22-year-old healthy gentleman who was admitted early yesterday morning with enteroviral meningitis Patient reports his headache is very mildly improved today. He denies any nausea or vomiting. He does admit to having significant photosensitivity. He is able to drink fluids okay. He has a poor appetite. He denies any significant neck stiffness. He does complain of some mild low back discomfort. Exam Vital Signs (past 8 hours): - 07/20/22 12:00 Temperature 98.3 F Pulse Rate 62 Respiratory Rate 18 Blood Pressure 105/65 Pulse Oximetry 98 Oxygen Flow Rate 0 Oxygen Delivery Method Room Air Oxygen Flow Rate 0 Narrative Exam Narrative: GEN: Ill male, Alert and oriented x 3, NAD HEENT:NC, Face symmetric, full range of motion of the neck CHEST: Respiratory excursions symmetric, CTAB CV: RRR, no M/R/G ABD: Soft, NT/ND, BT present in all 4 quadrants, no organomegaly or masses EXTR: warm, well perfused, no C/C/E SKIN: warm and dry, no rash NEURO: Alert and oriented x 3, nonfocal Objective Labs Result Diagrams: 07/19/22 05:43 07/19/22 05:43 Labs: Laboratory Results - last 24 hr 07/19/22 07/19/22 05:43 05:43 Hepatitis A Total & IgM Positive A Hep A IgM Ab Confirm Negative Hep B Core Total Ab Negative PFSH Social History household members: family Smoking Status: Never smoker alcohol intake: current Assessment & Plan Assessment & Plan narrative: Enterovirus meningitis Continue supportive care. He has had negative cultures thus far. Will discontinue Rocephin. Advise he can discharge home if he is able to maintain his hydration as well as hold down pain medications as needed. Transaminitis Likely secondary to viral infection. AST, ALT, and alkaline phosphatase are all mildly improving. Will repeat labs tomorrow. Mild leukopenia Likely secondary to viral infection Mild thrombocytopenia Again likely secondary to viral infection Code status Full Prophylaxis Low Micky score Disposition Possible home discharge tomorrow Time Spent With Patient Critical Care time: I spent a total of [] minutes of critical care time on this patient's care today; this time is exclusive of procedural time.
--- NOTE | 2022-07-20 22:05 | PC.NURSE ---
Addendum entered by Ronda Pina R.N. 07/21/22 06:02: Patient sleeping after being medicated for pain. No further complaints of pain. Addendum entered by Ronda Pina R.N. 07/21/22 00:08: Patient medicated for pain with acceptable results. patient sleeping, family at bedside for support. Original Note: Patient awake and alert, family at bedside. No complaints of pain at present time. Encouraged to call for pain medication if needed.
[2022-07-21] VITALS: BP 111/59; PULSE 58; RESP 18; TEMP 36.5; O2SAT 100
[2022-07-21 04:27] LABS: Hepatitis B Surf Ab Qualitativ Reactive (.)
[2022-07-21 05:48] LABS: Add Manual Diff / Slide Review NO; Basophils Absolute Auto 0 /uL (0-100); Eosinophils Absolute Auto 200 /uL (0-450); Eosinophils Percent Auto 3.5 % (2-4); Hematocrit 41.5 % (41-53); Hemoglobin 14.3 g/dL (13.5-17.5); Lymphocytes Absolute Auto 2100 /uL (1100-4500); Lymphocytes Percent Auto 43.7 % (25-40); Mean Corpuscular HGB Conc 34.6 % (30-36); Mean Corpuscular Hemoglobin 29.9 PG (26-34); Mean Corpuscular Volume 86.5 fL (80-100); Monocytes Absolute Auto 700 /uL (0-900); Neutrophils Absolute Auto 1800 /uL (1500-7000); Neutrophils Percent Auto 37.8 % (50-75); Platelet Count 141 X10^3/uL (150-400); Red Blood Cell Count 4.79 X10^6/uL (4.5-5.9); Red Cell Distribution Width 12.5 % (11.6-14.8); White Blood Cell Count 4.7 X10^3/uL (4.5-11.0)
[2022-07-21 05:57] LABS: Alanine Aminotransferase 532 IU/L (<50); Albumin Globulin Ratio 1.3 (1.0-2.8); Alkaline Phosphatase 97 U/L (38-126); Aspartate Aminotransferase 210 IU/L (17-59); BUN Creatinine Ratio 14.8 (6-22); Bilirubin Total 0.5 mg/dL (0.2-1.3); Blood Urea Nitrogen 16 mg/dL (9-20); Calcium 8.8 mg/dL (8.4-10.2); Carbon Dioxide 26 mmol/L (22-32); Chloride 105 mmol/L (98-107); Estimated Glomerular Filt Rate > 60 mL/min (>60); Globulin 3.2 g/dL (1.7-4.1); Glucose 99 mg/dL (70-100); HEMOLYSIS < 15 (0-50); Potassium 4.5 mmol/L (3.4-5.1); Sodium 139 mmol/L (137-145); Total Protein 7.2 g/dL (6.3-8.2)
[2022-07-21 06:00] VITALS: BP 101/50; PULSE 58; RESP 18; TEMP 36.4; O2SAT 100
[2022-07-21 07:00] VITALS: O2SAT 100
[2022-07-21 08:15] VITALS: BP 100/51; PULSE 53; RESP 20; TEMP 36.6; O2SAT 100
[2022-07-21] MEDS: IBUPROFEN 600 MG TABLET PO (08:30)
--- NOTE | 2022-07-21 13:10 | CM.IDA ---
Initial DCP Assessment Note Pt is a 22yo male, resident of [place], presents with headache since last Saturday admitted for treatment for enteroviral meningitis PCP: [facility] Payer: Melvin Bess Reviewed chart, pt discussed in multidisciplinary rounds this morning. Discharge home today expected. Patient indp and active at baseline No barriers identified at this time to patient's safe discharge home w/family to assist; close outpatient f/u recommended. CARA Oliveros
--- NOTE | 2022-07-22 20:25 | P.DS_ITS ---
History of Present Illness History of Present Illness Chief complaint: headache Narrative: Per history and physical: Mr. White is a 22M with no significant PMH who presents to the hospital with headache. He states he has had a headache since last Saturday. He has had some nausea. He has no neck stiffness. Headaches is throughout his head. He has no vision changes. His two daughters have been sick with sinus symptoms. Two days ago he had a fine faint rash on his whole body that is now gone. He has no genital lesions. In the ED workup was done, vitals notable for T-100, other vitals normal. Labs notable for WBC 3.9, hgb 14, plts 131. Creatinine 1.02. AST 655/ALT 733, alk phos 136, bili 0.5. Procal 0.20.? UA negative. Respiratory panel negative. LP done showing 10 WBCs, glucose 53, total protein 54. PCR showed positive enterovirus in CSF. CT head negative for an acute process. CT abdomen/pelvis pr eliminarily with no acute process. He was given pain medications and admitted for further treatment. Family history: asked and patient stated no significant family history of medical disease Social history: social EtOH, no tobacco, no other substance abuse Discharge Providers Provider Date of admission: 07/19/22 03:54 Discharge Date: 07/21/22 Discharge provider: Ramila Mcmanus MD Summary Hospital Course Discharge Diagnosis: Enterovirus meningitis Transaminitis, improving Mild leukopenia, improving Mild thrombocytopenia, improving Hospital Course: Patient was admitted to the hospital with headache and mild fever. In the emergency department, he underwent a workup inclusive of a lumbar puncture which revealed 10 white blood cells, glucose of 53, total protein of 54. Viral PCR was done which was positive for enterovirus. CT of the head was negative. Patient was admitted for pain management, and supportive care. By the day following admission, patient was feeling slightly better but continued to have significant head pain. He was not able to meet his oral hydration needs. He also complained of significant photosensitivity. He was encouraged to increase his activity level, shower, and spend a bit more time out of bed that day. By the date of discharge, he reported he was feeling much better. He was able to eat and drink without difficulty. He was meeting his hydration requirements. He was independently ambulatory throughout the room. He did continue to have headache but reported that it was more manageable. He denied any nausea. He did have some mild photosensitivity. We did discuss at length that he would continue to have headaches likely over the next 2 weeks which would gradually improve. 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 Given that, I have encouraged him to remain out of work for an additional 7 days such that he returns to work on July 30. A note was provided to him to give to his employer. He has 600 mg ibuprofen as well as ondansetron 4 mg tablets available from previous prescription. He felt his pain was well controlled with ibuprofen. He is discharged in stable condition. Exam Vital Signs (past 8 hours): Oxygen Delivery Method Room Air Oxygen Flow Rate 0 Narrative Exam Narrative: GEN:? Pleasant adult male, Alert and oriented x 3, NAD HEENT:NC, Face symmetric, full range of motion of the neck CHEST: Respiratory excursions symmetric, CTAB CV: RRR, no M/R/G ABD: Soft, NT/ND, BT present in all 4 quadrants, no organomegaly or masses EXTR: warm, well perfused, no C/C/E SKIN: warm and dry, no rash NEURO: Alert and oriented x 3, nonfocal Objective Labs Result Diagrams: 07/21/22 05:40 07/21/22 05:40 Labs: Laboratory Results - last 24 hr 07/19/22 05:43 HCV Quantitation Hcv not detected HCV RNA (PCR) IU log10 TNP Hepatitis C Genotype TNP Ref Test Comments Comment PFSH Social History household members: family Smoking Status: Never smoker alcohol intake: current Discharge Plan Discharge Plan Patient Disposition: Home Provider Discharge Comment: Make sure you are staying hydrated (at least 2 li ters of noncaffeinated fluid daily). Avoid alcohol for the next couple of weeks. Okay to drink caffeine. Return to the ED for: recurrent fevers/chills, confusion, inability to hold down food/fluids Continue ibuprofen 600 mg up to four times daily w/food as needed for headache (pt has rx) May use tylenol 650 mg (2 tabs/caps) every four hours as needed for headache Use ondansetron (Zofran) as needed for nausea (pt has rx) Discharge orders & Medications Prescriptions: No Action No Known Home Medications Diet/Activity/Treatments Diet: Diet as Tolerated and Regular Activity: As tolerated Visit Report/Discharge Packet Instructions: DI for Viral Meningitis -- Adult Stand Alone Forms: Work/Release Restrictions
== END 2022-07-21 10:13 | disposition home or self-care (01) | DRG 76 ==
LOC: ED 23:32 → AC 07-19 08:18 → ICU 07-19 08:41 → AC 07-20 09:57
PROVIDERS: Family Medicine; Student in an Organized Health Care Education/Training Program; Admitting Provider Internal Medicine; Emergency Provider Emergency Medicine; Referring Provider Emergency Medicine; Visit Provider Internal Medicine
DX: A87.0 Enteroviral meningitis (principal); Z20.822 Contact with and (suspected) exposure to COVID-19
CPT/HCPCS: 36415; 62270; 70450; 74177; 80053; 80329; 81003; 81015; 82945; 83605; 84145; 84157; 85025; 86617; 86704; 86706; 86708; 87070; 87086; 87205; 87340; 87389; 87522; 87633; 87797; 87798; 89051; 96374; 96375; 99284; G0480; J0696; J1650; J2270; J2405; J2765; Q9967

== ENCOUNTER 2022-07-22 16:53 | Emergency (ER) | payer OTHER, SELFPAY ==
[2022-07-19 08:13] VITALS: BMI 23.5
[2022-07-22 17:00] VITALS: BP 132/70; PULSE 60; RESP 18; TEMP 36.7; O2SAT 95; BMI 26.6
--- NOTE | 2022-07-22 17:07 | ED_ITS ---
HPI - Headache <Norbert Luu DO - Last Filed: 07/24/22 05:04> General Chief Complaint: Headache Stated Complaint: DX meningitis-yesterday ICU-symptoms are worsening Time Seen by Provider: 07/22/22 17:05 History of Present Illness HPI Narrative: 22-year-old male nonsmoker without significant medical history returns for the 2nd time this week with his mother with chief complaint of ongoing severe headache and vomiting. He had been seen and evaluated a few days earlier for similar symptoms and was diagnosed with enterovirus meningitis and admitted to the hospital for pain control. Patient was admitted on the and discharged yesterday with antiemetics and encouraged to take Tylenol and Motrin for pain. He presents with ongoing pain and vomiting. He denies any blurred vision or trouble with speech, he is had no fever and denies any ongoing neck pain. He is had very poor appetite and had little to eat or drink. He denies any new trauma or injury Related Data Previous Rx's Medication Instructions Recorded hydrocodone 5 mg-acetaminophen 325 1 tab PO Q6H PRN pain #10 tabs 07/22/22 mg tablet ondansetron 4 mg disintegrating 4 mg PO Q8H PRN nausea and 07/22/22 tablet vomiting #10 tabs promethazine 25 mg rectal 25 mg [place] Q6H PRN nausea and 07/22/22 suppository vomiting #12 ea Allergies Allergy/AdvReac Type Severity Reaction Status Date / Time No Known Drug Allergies Allergy Verified 07/19/22 00:56 Review of Systems <DO Joe Millan Last Filed: 07/24/22 05:04> Review of Systems Narrative: GENERAL: Denies chills, fatigue, malaise, fever, sweats. HEENT: Denies sinus pain, ear pain, sore throat, difficulty swallowing, dizziness. RESPIRATORY: Denies dyspnea, cough, wheezing, hemoptysis, sputum. CARDIOVASCULAR: Denies chest pain, palpitations, orthopnea, edema, GASTROINTESTINAL: Denies nausea, vomiting, abdominal pain, diarrhea, constipation, melena. : Denies dysuria, frequency, incontinence, hematuria, urinary retention. MUSCULOSKELETAL: denies weakness, joint pain, or bony pain SKIN: Denies rash, skin lesions, or other NEUROLOGIC: See HPI PSYCHIATRIC: No concerning psychosocial issues. 12 point review of systems is negative except for those stated above Patient History <Norbert Luu DO - Last Filed: 07/24/22 05:04> Social History household members: family Smoking Status: Never smoker alcohol intake: current Smoking Status: Never smoker alcohol intake frequency: holidays/special occasions only Substance Use Type: does not use Exam <DO Joe Millan Last Filed: 07/24/22 05:04> Narrative Exam Narrative: GENERAL: [22] year old patient appears stated age. Well-developed patient, in moderate distress, clearly uncomfortable, holding an emesis bag HEAD: Atraumatic. Normocephalic. EYES: Pupils equal round and reactive. Extraocular motions intact. No scleral icterus. No injection or drainage. ENT: Nose without bleeding, purulent drainage. Throat without erythema, tonsillar hypertrophy or exudate. Airway patent. NECK: Trachea midline. Non tender, no meningeal signs CARDIOVASCULAR: Regular rate and rhythm without murmurs, gallops, or rubs. RESPIRATORY: Clear to auscultation. Breath sounds equal bilaterally. No wheezes, rales, or rhonchi. GASTROINTESTINAL: Abdomen soft, non-tender, nondistended. EXTREMITIES: No edema or joint tenderness. BACK: Nontender without deformity or crepitance. No flank tenderness. NEURO: AOx3. SKIN: No rash or erythema of visible areas Initial Vital Signs Initial Vital Signs: Vital Signs Temperature 98.1 F 07/22/22 17:00 Pulse Rate 60 07/22/22 17:00 Respiratory Rate 18 07/22/22 17:00 Blood Pressure 132/70 07/22/22 17:00 Pulse Oximetry 95 07/22/22 17:00 Oxygen Delivery Method 07/22/22 17:00 <Zina Berry DO - Last Filed: 07/23/22 02:26> Initial Vital Signs Initial Vital Signs: Vital Signs Temperature 98.1 F 07/22/22 17:00 Pulse Rate 60 07/22/22 17:00 Respiratory Rate 18 07/22/22 17:00 Blood Pressure 132/70 07/22/22 17:00 Pulse Oximetry 95 07/22/22 17:00 Oxygen Delivery Method 07/22/22 17:00 Course <DO Joe Millan Last Filed: 07/24/22 05:04> Orders Ordered: Discontinued Medications Hydrocodone Bitart/Acetaminophen (Hydrocodone/Acet 5/325 Prepack) 1 bottle MISC SEEINSTR ONE Stop: 07/22/22 21:26 Last Admin: 07/22/22 21:39 Dose: 1 bottle Documented By: JUAN LUIS Sodium Chloride (Normal Saline 0.9%) 1,000 mls @ 1,000 mls/hr IV BOLUS ONE Stop: 07/22/22 18:06 Last Infusion: 07/22/22 18:40 Dose: 0 mls/hr Documented By: MARY KATE Admin: 07/22/22 17:14 Dose: 1,000 mls/hr Documented By: MARY KATE Acetaminophen (Ofirmev) 1,000 mg in 100 mls @ 400 mls/hr IV NOW ONE Stop: 07/22/22 17:39 Last Infusion: 07/22/22 18:40 Dose: 0 mls/hr Documented By: MARY KATE Admin: 07/22/22 17:55 Dose: 400 mls/hr Documented By: MARY KATE Ketorolac Tromethamine (Ketorolac 30 Mg/Ml Vial) 15 mg IV NOW ONE Stop: 07/22/22 17:08 Last Admin: 07/22/22 17:14 Dose: 15 mg Documented By: MARY KATE Ondansetron HCl (Ondansetron 4 Mg/2 Ml Inj) 4 mg IV NOW ONE Stop: 07/22/22 17:08 Last Admin: 07/22/22 17:13 Dose: 4 mg Documented By: MARY KATE Pantoprazole Sodium (Pantoprazole 40 Mg Vial) 40 mg IV NOW ONE Stop: 07/22/22 17:44 Last Admin: 07/22/22 17:48 Dose: 40 mg Documented By: MARY KATE Reevaluation(s) Reevaluation #1: Patient having significant improvement in pain after above-stated therapies. He is not vomited since he has been here, has no neck pain and no fever. He is attempting oral challenge now Vital Signs Vital signs: Vital Signs - 8 hr 07/22/22 19:24 07/22/22 21:41 Pulse Rate 71 85 Respiratory Rate 14 16 Blood Pressure 132/75 135/83 Pulse Oximetry 99 98 Oxygen Delivery Method Room Air Room Air <Zina Berry DO - Last Filed: 07/23/22 02:26> Orders Ordered: Discontinued Medications Hydrocodone Bitart/Acetaminophen (Hydrocodone/Acet 5/325 Prepack) 1 bottle MISC SEEINSTR ONE Stop: 07/22/22 21:26 Last Admin: 07/22/22 21:39 Dose: 1 bottle Documented By: JUAN LUIS Sodium Chloride (Normal Saline 0.9%) 1,000 mls @ 1,000 mls/hr IV BOLUS ONE Stop: 07/22/22 18:06 Last Infusion: 07/22/22 18:40 Dose: 0 mls/hr Documented By: Admin: 07/22/22 17:14 Dose: 1,000 mls/hr Documented By: MARY KATE Acetaminophen (Ofirmev) 1,000 mg in 100 mls @ 400 mls/hr IV NOW ONE Stop: 07/22/22 17:39 Last Infusion: 07/22/22 18:40 Dose: 0 mls/hr Documented By: MARY KATE Admin: 07/22/22 17:55 Dose: 400 mls/hr Documented By: MARY KATE Ketorolac Tromethamine (Ketorolac 30 Mg/Ml Vial) 15 mg IV NOW ONE Stop: 07/22/22 17:08 Last Admin: 07/22/22 17:14 Dose: 15 mg Documented By: MARY KATE Ondansetron HCl (Ondansetron 4 Mg/2 Ml Inj) 4 mg IV NOW ONE Stop: 07/22/22 17:08 Last Admin: 07/22/22 17:13 Dose: 4 mg Documented By: MARY KATE Pantoprazole Sodium (Pantoprazole 40 Mg Vial) 40 mg IV NOW ONE Stop: 07/22/22 17:44 Last Admin: 07/22/22 17:48 Dose: 40 mg Documented By: MARY KATE Vital Signs Vital signs: Vital Signs - 8 hr 07/22/22 19:24 07/22/22 21:41 Pulse Rate 71 85 Respiratory Rate 14 16 Blood Pressure 132/75 135/83 Pulse Oximetry 99 98 Oxygen Delivery Method Room Air Room Air <Zina Berry DO - Last Filed: 07/23/22 02:26> MDM Narrative Medical decision making narrative: Patient signed out to me by Dr. Luu at seen evaluated patient myself. 22-year-old male who was diagnosed with a viral meningitis on July 18, was admitted to the hospital for 2 nights and discharged home yesterday. He had a prescription for Zofran at home he is instructed to take Tylenol and ibuprofen at home for pain. However he had persistent vomiting and severe headache bring him into the ED. Mom is concerned that he needs to be readmitted to the. He has been given IV fluids pain medicine and is tolerating oral fluids. At this time there is no indication for him to be readmitted to the hospital. Described to them supportive care only. 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 High have discussed with [place] that [place]. This time he will be given Phenergan suppositories and Fleming for management at home. 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 This can take a couple of weeks to completely resolve. Please continues to stay hydrated rest be sure your getting caffeine this will also help your headache *Continue to take medications as directed Ibuprofen 800 mg every 8 hours Zofran 4 mg every 8 hours if needed for nausea or vomiting Phenergan 25 mg every 6 hours suppository if needed for nausea or vomiting Fleming 1 tablet every 6 hours if needed for severe pain *Follow up with your primary care provider in 2-3 days or call [phone] *Return to ER if you should have persistent vomiting worsening headache despite medications or any new, worsening or concerning symptoms CONTROLLED SUBSTANCE DISCHARGE (Narcotoic/benzodiazepine/Flexeril/Phenergan) 1. You have been prescribed narcotic medications, it does have acetaminophen/Tylenol/paracetamol in it, DO NOT TAKE MORE THAN 4,00mg in 24 hours of Tylenol. TRAMADOL DOES NOT CONTAIN TYLENOL 2. Please understand that we cannot provide further refills of narcotics, benzodiazepines or controlled substances through the ED and her pain management will need to be through your provider. 3. While on these medications you cannot drive or operate heavy machinery. 4. You cannot sign legal documents or perform any duties such as this. 5. As long as you're taking opiate pain medications he should also be taking a stool softener such as Colace, Dulcolax, MiraLAX or prune juice, to help avoid constipation. Prescriptions: New hydrocodone-acetaminophen 5-325 mg tablet 1 tab PO Q6H PRN (Reason: pain) Qty: 10 0RF promethazine 25 mg suppository 25 mg [place] Q6H PRN (Reason: nausea and vomiting) Qty: 12 0RF ondansetron 4 mg tablet,disintegrating 4 mg PO Q8H PRN (Reason: nausea and vomiting) Qty: 10 0RF Visit Report Forms: Patient Portal/API
[2022-07-22] MEDS: ONDANSETRON 4 MG/2 ML INJ IV (17:13)
[2022-07-22] MEDS: SODIUM CHLORIDE 0.9% 1,000 ML 1000 ML IV (17:14)
[2022-07-22] MEDS: KETOROLAC 30 MG/ML VIAL 15 MG IV (17:14)
[2022-07-22] MEDS: PANTOPRAZOLE 40 MG VIAL IV (17:48)
[2022-07-22] MEDS: ACETAMINOPHEN IV 1,000 MG/100 ML VIAL 400 MG IV (17:55)
[2022-07-22 19:24] VITALS: BP 132/75; PULSE 71; RESP 14; O2SAT 99
[2022-07-22] MEDS: HYDROCODONE/ACET 5/325 PREPACK 1 BOTTLE MISC (21:39)
[2022-07-22 21:41] VITALS: BP 135/83; PULSE 85; RESP 16; O2SAT 98
== END 2022-07-22 21:42 | disposition home or self-care (01) ==
PROVIDERS: Emergency Provider Emergency Medicine
DX: A87.0 Enteroviral meningitis (principal)
CPT/HCPCS: 36415; 96365; 96375; 99284; C9113; J0131; J1885; J2405